=== PATIENT | female | born 1985 | race Caucasian/White ===

== ENCOUNTER → 2020-10-21 | Outpatient (CLI) | payer SELFPAY ==
[~2020-10-21] MED LIST: AMOX1TAB61 PO; METR500T PO
--- NOTE | 2020-10-21 11:01 | RAD ---
XR HAND_RIGHT 3 VIEWS 10/21/2020 10:49 AM INDICATION: Dogbite, pain and swelling COMPARISON: None available. TECHNIQUE: 3 views the right hand are provided. FINDINGS/ IMPRESSION: There is no acute fracture or dislocation. Joint spaces are maintained. Bone mineralization is within normal limits. Soft tissue defect identified along the dorsum of the hand. There is no soft tissue g as or osseous erosion. No radiopaque foreign body. Electronically signed by: Jessica Daniels MD (10/21/2020 10:58 AM) [id number]
== END ==
LOC: DXRAD 10:39
PROVIDERS: ATTEND Nurse Practitioner Family
DX: S61.451A Open bite of right hand, initial encounter (principal); W54.0XXA Bitten by dog, initial encounter; Y93.89 Activity, other specified; Y92.89 Other specified places as the place of occurrence of the external cause; Y99.8 Other external cause status
CPT/HCPCS: 73130

== ENCOUNTER 2020-10-23 20:33 | Emergency (ER) | payer SELFPAY ==
[~2020-10-23] VITALS: Ht 167.6 cm; Wt 131.0 kg
[2020-10-23 20:45] VITALS: BP 148/101
--- NOTE | 2020-10-23 20:48 | PHYS DOC ---
General Adult EDM: Chief Complaint: ANIMAL BITE HPI: HPI: ".. 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 on Friday.. I went to Urgent care.. the started me on Augment 875 twice a day... I came back here on Sat. .. and they did an x-ray.. but it is still swollen today... and red..." Patient is a 35 year old female who presents with above hx and complaints of dog bite to Rt. hand on Friday.. Reportly Police report made. Pt. right hand has findings of puncture wounds and swelling to the level of the wrist. Patient has been taking her Augmentin 875 twice a day. Been soaking and an herbal cleanse twice a day. Patient denies any history immunosuppression. States tetanus is up-to-date. No recent travel. The dog impressions well has vaccinations up-to-date and on her be back tomorrow. Pt. is right hand dominate. Does have edema. Distal neurovascular intact. Capillary refill is equal to Lt. hand. No recent travel. No sick ill contacts. The dog is not ill. Review of Systems: Review of Systems: Constitutional: Denies fever or chills Eyes: Denies change in visual acuity HENT: Denies nasal congestion or sore throat Respiratory: Denies cough or shortness of breath Cardiovascular: Denies chest pain or edema GI: Denies abdominal pain, nausea, vomiting, bloody stools or diarrhea : Denies dysuria Musculoskeletal: Complains of swelling and right hand from dog bite Integument: Denies rash Neurologic: Denies headache, focal weakness or sensory changes Endocrine: Denies polyuria or polydipsia Lymphatic: Denies swollen glands Psychiatric: Denies depression or anxiety Family History: Family History: Noncontributory Current Medications: Current Meds: See nursing for home meds Allergies: Allergies: Allergies Coded Allergies Type Severity Reaction Last Updated Verified No Known Drug Allergies 10/23/20 No Physical Exam: PE: Constitutional: Moderate acute distress, non-toxic appearance. [] HENT: Normocephalic, atraumatic, bilateral external ears normal, oropharynx moist, no oral exudates, nose normal. [] Eyes: PERRLA, EOMI, conjunctiva normal, no discharge. [] Neck: Normal range of motion, no tenderness, supple, no stridor. [] Cardiovascular:Heart rate regular rhythm, no murmur [] Lungs & Thorax: Bilateral breath sounds clear to auscultation [] Abdomen: Bowel sounds normal, soft, no tenderness, no masses, no pulsatile masses. Obese Skin: Warm, dry, no erythema, no rash. [] Dog bite right hand which appears to be infected and surround erythema Back: No tenderness, no CVA tenderness. [] Extremities: No tenderness, no cyanosis, no clubbing, ROM intact, no edema. [] Set findings in right hand as per HPI Neurologic: Alert and oriented X 3, normal motor function, normal sensory function, no focal deficits noted. [] Psychologic: Affect anxious, judgement normal, mood normal. [] EKG: EKG: [] Radiology/Procedures: Radiology/Procedures: Reviewed hand xray 10/21/20[] Heart Score: C/O Chest Pain: N/A Risk Factors: Risk Factors: DM, Current or recent (<one month) smoker, HTN, HLP, family history of CAD, obesity. Risk Scores: Score 0 - 3: 2.5% MACE over next 6 weeks - Discharge Home Score 4 - 6: 20.3% MACE over next 6 weeks - Admit for Clinical Observation Score 7 - 10: 72.7% MACE over next 6 weeks - Early Invasive Strategies Course & Med Decision Making: Course & Med Decision Making Pertinent Labs and Imaging studies reviewed. (See chart for details) Soak hand in very warm salt water or episome salt water 4 x day, the massage area with poloysporin. Continue the Augmentin 875 twice a day. Add Flagyl 500 three times a day. If no improvement in 3 days may need Admit for IV antibiotics and or pic line placement for daily IV antibiotics. Dog must be confine x 2 weeks for observation. . Impression: 1. Dog bite Rt hand 2. Cellulitis [] Dragon Disclaimer: Aly Disclaimer: This electronic medical record was generated, in whole or in part, using a voice recognition dictation system. Departure Departure: Referrals: BARB LAMAS (PCP) Scripts Metronidazole (FLAGYL) 500 Mg Tablet 500 MG PO TID for dog, #30 TAB Prov: ROGELIO NIEVES MD 10/23/20 Amoxicillin/Potassium Clav (AUGMENTIN 875-125 TABLET) 1 Each Tablet 1 TAB PO BID for dog bite for 10 Days, #20 TAB 0 Refills Prov: ROGELIO NIEVES MD 10/23/20 Aly Disclaimer This chart was dictated in whole or in part using Voice Recognition software in a busy, high-work load, and often noisy Emergency Department environment. It may contain unintended and wholly unrecognized errors or omissions. Dragon Disclaimer This chart was dictated in whole or in part using Voice Recognition software in a busy, high-work load, and often noisy Emergency Department environment. It may contain unintended and wholly unrecognized errors or omissions. ROGELIO NIEVES MD Oct 23, 2020 20:48
[2020-10-23] MEDS ORDERED: cefTRIAXone IM 1 GM VIAL IM ONE (21:00)
[2020-10-23] MEDS ORDERED: metroNIDAZOLE 500 MG TABLET PO ONE (21:00)
[2020-10-23] MEDS ORDERED: AMOX1TAB61 PO (21:06)
[2020-10-23] MEDS ORDERED: METR500T PO (21:06)
== END 2020-10-23 21:31 | disposition home or self-care (01) ==
LOC: ER 20:33
DX: S61.431A Puncture wound without foreign body of right hand, initial encounter (principal); R60.0 Localized edema; L03.113 Cellulitis of right upper limb; W54.0XXA Bitten by dog, initial encounter; Y93.89 Activity, other specified; Y92.89 Other specified places as the place of occurrence of the external cause; Y99.8 Other external cause status
CPT/HCPCS: 96372; 99283; J0696

== ENCOUNTER 2021-04-03 13:26 | Emergency (ER) | payer SELFPAY ==
[~2021-04-03] VITALS: Ht 167.6 cm; Wt 136.8 kg
[2021-04-03 14:07] VITALS: BP 146/93
[2021-04-03] MEDS ORDERED: ONDANSETRON PF 4 MG/2 ML VIAL. IVP ONE (14:30)
[2021-04-03] MEDS ORDERED: IV NORMAL SALINE 1,000ML 1,000 ML IV ONE (14:30)
--- NOTE | 2021-04-03 14:40 | PHYS DOC ---
Past History Past Medical History: No Pertinent History (MJ WOLFF APRN) Past Surgical History: Hysterectomy, Tonsillectomy (MJ WOLFF APRN) Alcohol Use: None (MJ WOLFF APRN) General Adult EDM: Chief Complaint: ABDOMINAL PAIN HPI: HPI: Patient is a 36-year-old female being seen in the ER for left upper quadrant pain with nausea and vomiting that started this morning. Patient reports that she vomited two times today. Patient denies any radiation of pain. No treatment prior to arrival. She says that her pain level is very low because she just vomited and her pain improved after vomiting. Patient denies diarrhea, fevers, dysuria, hematuria, blood in vomit, alcohol use. (MJ WOLFF APRN) Review of Systems: Review of Systems: 14 body systems of the review of systems have been reviewed. See HPI for pertinent positive and negative responses, otherwise all other systems are n egative, nonpertinent or noncontributory (MJ WOLFF APRN) Allergies: Allergies: Allergies Coded Allergies Type Severity Reaction Last Updated Verified No Known Drug Allergies 10/23/20 No (MJ WOLFF APRN) Physical Exam: PE: Constitutional: Well developed, well nourished, no acute distress, non-toxic appearance. [] HENT: Normocephalic, atraumatic, bilateral external ears normal, oropharynx moist, no oral exudates, nose normal. [] Eyes: PERRL, EOMI, conjunctiva normal, no discharge. [] Neck: Normal range of motion, no stridor Cardiovascular:Heart rate regular rhythm, no murmur [] Lungs & Thorax: Bilateral breath sounds clear to auscultation [] Abdomen: Bowel sounds normal, soft, , no masses, no pulsatile masses, pain with palpation to left upper quadrant. [] Skin: Warm, dry, no erythema, no rash. [] Back: No tenderness, normal range of motion Extremities: No tenderness, no cyanosis, no clubbing, ROM intact, no edema. [] Neurologic: Alert and oriented X 3, normal motor function, normal sensory function, no focal deficits noted. [] Psychologic: Affect normal, judgement normal, mood normal. [] (MJ WOLFF APRN) Current Patient Data: Labs: Laboratory Tests Test 04/03/21 14:46 8/17/21 14:47 Urine Collection Type Void Urine Color Yellow Urine Clarity Clear Urine pH 7.0 Urine Specific [place] 1.025 Urine Protein Neg Urine Glucose (UA) Neg mg/dL Urine Ketones (Stick) Trace mg/dL Urine Blood Trace Urine Nitrite Neg Urine Bilirubin Neg Urine Urobilinogen Dipstick 0.2 mg/dL Urine Leukocyte Esterase Neg Urine RBC 1-2 /HPF Urine WBC 0 /HPF Urine Squamous Epithelial Cells Few /LPF Urine Bacteria 0 /HPF Urine Mucus Slight /LPF White Blood Count 11.0 x10^3/uL Red Blood Count 4.50 x10^6/uL Hemoglobin 13.2 g/dL Hematocrit 39.3 % Mean Corpuscular Volume 87 fL Mean Corpuscular Hemoglobin 29 pg Mean Corpuscular Hemoglobin Concent 34 g/dL Red Cell Distribution Width 12.7 % Platelet Count 215 x10^3/uL Neutrophils (%) (Auto) 78 % Lymphocytes (%) (Auto) 15 % Monocytes (%) (Auto) 7 % Eosinophils (%) (Auto) 0 % Basophils (%) (Auto) 0 % Neutrophils # (Auto) 8.6 x10^3uL Lymphocytes # (Auto) 1.6 x10^3/uL Monocytes # (Auto) 0.7 x10^3/uL Eosinophils # (Auto) 0.0 x10^3/uL Basophils # (Auto) 0.0 x10^3/uL Sodium Level 140 mmol/L Potassium Level 3.8 mmol/L Chloride Level 105 mmol/L Carbon Dioxide Level 28 mmol/L Anion Gap 7 Blood Urea Nitrogen 16 mg/dL Creatinine 0.9 mg/dL Estimated GFR (Cockcroft-Gault) 70.8 BUN/Creatinine Ratio 18 Glucose Level 101 mg/dL Calcium Level 8.5 mg/dL Total Bilirubin 0.7 mg/dL Aspartate Amino Transf (AST/SGOT) 17 U/L Alanine Aminotransferase (ALT/SGPT) 27 U/L Alkaline Phosphatase 85 U/L Total Protein 7.0 g/dL Albumin 3.8 g/dL Albumin/Globulin Ratio 1.2 Lipase 103 U/L Current Medications Medications (Trade) Dose Ordered Sig/Xavier Route PRN Reason Start Time Stop Time Status Last Admin Dose Admin Sodium Chloride 1,000 ml @ 1,000 mls/hr 1X ONCE IV 04/03/21 14:30 04/03/21 15:29 DC 04/03/21 15:19 Ondansetron HCl (Zofran) 4 mg 1X ONCE IVP 04/03/21 14:30 04/03/21 14:40 DC 04/03/21 15:17 Iohexol (Omnipaque 300 Mg/ml) 75 ml 1X ONCE IV 04/03/21 15:00 04/03/21 15:02 DC 04/03/21 15:07 Fentanyl Citrate (Fentanyl 2ml Vial) 50 mcg 1X ONCE IVP 04/03/21 15:15 04/03/21 15:19 DC 04/03/21 15:21 Vital Signs: Vital Signs Date Time Temp Pulse Resp B/P (MAP) Pulse Ox O2 Delivery O2 Flow Rate FiO2 04/03/21 14:07 98.5 86 16 146/93 97 Room Air (MJ WOLFF APRN) EKG: EKG: [] (MJ WOLFF APRN) Radiology/Procedures: Radiology/Procedures: PROCEDURE: CT ABD PELV W/ IV CONTRST ONLY CT ABDOMEN+PELVIS W History: Left upper quadrant pain. Comparison: None. Technique: CT of the abdomen and pelvis with intravenous contrast. Findings: The left kidney is hypoenhancing, edematous and demonstrates mild hydronephrosis. There is a proximal left ureteropelvic junction stone measuring approximately 6 mm. Multiple additional tiny bilateral nephroliths are present. Bilateral renal hypodensities compatible with cysts. The lung bases are clear. The liver is within normal limits. Status post cholecystectomy. Spleen is mildly enlarged, 15.3 cm. Unremarkable pancreas and adrenal glands. The stomach, small bowel, appendix and colon are unremarkable. No intraperitoneal free air or free fluid. No abdominopelvic adenopathy. The bladder, uterus and adnexa are within normal limits. Vasculature is unremarkable . Soft tissues and osseous structures are within normal limits for age. Impression: 1. Moderate left hydronephrosis with 6 mm left ureteropelvic junction stone. 2. Punctate bilateral nephrolithiasis. ------ Exposure: One or more of the following individualized dose reduction techniques were utilized for this examination: 1. Automated exposure control 2. Adjustment of the mA and/or kV according to patient size 3. Use of iterative reconstruction technique. Electronically signed by: Jogre Bro MD (04/03/2021 3:28 PM) [id number] DICTATED AND SIGNED BY: JORGE BRO MD DATE: 04/03/21 1524 CC: MJ WOLFF APRN; BARB LAMAS ~MTH0 0 [] (MJ WOLFF APRN) Heart Score: C/O Chest Pain: No Risk Factors: Risk Factors: DM, Current or recent (<one month) smoker, HTN, HLP, family history of CAD, obesity. Risk Scores: Score 0 - 3: 2.5% MACE over next 6 weeks - Discharge Home Score 4 - 6: 20.3% MACE over next 6 weeks - Admit for Clinical Observation Score 7 - 10: 72.7% MACE over next 6 weeks - Early Invasive Strategies (MJ WOLFF APRN) Course & Med Decision Making: Course & Med Decision Making Pertinent Labs and Imaging studies reviewed. (See chart for details) [] Patient is a 36-year-old female being seen in the ER for left upper quadrant pain and nausea/vomiting. Work-up in the ER consisted of blood work, UA, CT scan of abdomen. Patient was treated with fluids and nausea medication. Patient tolerated p.o. in the emergency department and was able to ambulate without assistance. No evidence suggesting pyelonephritis or urinary tract infection, no acute kidney injury present with significant hydronephrosis. Pain is controlled at this time. Stone is 6 mm and should pass spontaneously, this was discussed with patient and there agreeable to trial of stone passage at home. Will give pain control and tamsulosin prescriptions. Patient is hemodynamically stable and afebrile currently. Plan to discharge from the emergency department. Advised to take medications as instructed and drink plenty of fluids. Return precautions discussed with the patient who understands all instructions and is comfortable with the plan of care. (MJ WOLFF APRN) Course & Med Decision Making I oversaw on the above date of service of this patient. This patient was evaluated, examined, treated, and dispositioned from the emergency department by the mid-level practitioner. Although I was working at the time , no assistance was requested. Electronically signed, Asya Mcgee DO (ASYA MCGEE DO) Aly Disclaimer: Aly Disclaimer: This electronic medical record was generated, in whole or in part, using a voice recognition dictation system. (MJ WOLFF APRN) Departure Departure: Impression: Primary Impression: Kidney stone Disposition: HOME / SELF CARE / HOMELESS Condition: GOOD Referrals: BARB LAMAS (PCP) Patient Instructions: Diet for Kidney Stones, Kidney Stones Additional Instructions: You were seen in the ER today for left upper abdominal pain and left flank pain. You have a kidney stone that will hopefully pass. We are writing a prescription for pain medication and a medication to help dilate the ureter so that you can pass the stone more easily. You should strain your urine and look for the stone. You are also being discharged home with nausea medication and pain medication. For mild pain you can take ibuprofen but for severe pain you can take [place] that is prescribed. This medication is a combination tablet of hydrocodone and Tylenol. Not take any additional Tylenol with this. This medication can cause sedation to so do not take any need to be alert and do not take with alcohol. You will need to follow-up with urologist as soon as possible. You should return to the ER if you have worsening pain, fever, continued bloody urine, lightheadedness, shortness of breath, chest pain or any new or concerning symptoms. EMERGENCY DEPARTMENT GENERAL DISCHARGE INSTRUCTIONS Thank you for coming to [facility] (ED) today and trusting us with you care. We trust that you had a positivie experience in our Emergency Department. If you wish to speak to the department management, you may call the director at [phone]. YOUR FOLLOW UP INSTRUCTIONS ARE FOLLOWS: 1. Do you have a private Doctor? If you do not have a private doctor, please ask for a resource list of physicians or clinics that may be able to assist you with follow up care. 2. The Emergency Physician has interpreted your x-rays. The X-Ray specialist will also review them. If there is a change in the findings, you will be notified in 48 hours when at all possible. 3. A lab test or culture has been done, your results will be reviewed and you will be notified if you need a change in treatment. ADDITIONAL INSTRUCTIONS AND INFORMATION: 1. Your care today has been supervised by a physician who is specially trained in emergency care. Many problems require more than one evaluation for a complete diagnosis and treatment. We recommend that you schedule your follow up appointment as recommended to ensure complete treatment of you illness or injury. If you are unable to obtain follow up care and continue to have a problem, or if your condition worsens, we recommend that you return to the ED. 2. We are not able to safely determine your condition over the phone nor are we able to give sound medical advice over the phone. For these safety reasons, if you call for medical advice we will ask you to come to the ED for further evaluation. 3. If you have any questions regarding these discharge instructions please call the ED at [phone]. SAFETY INFORMATION: In the interest of safety, wellness, and injury prevention; we encourage you to wear your sealbelt, if you smoke; quite smoking, and we encourage family to use a protective helmet for bicycling and other sporting events that present an increased risk for head injury. IF YOUR SYMPTOMS WORSEN OR NEW SYMPTOMS DEVELOP, OR YOU HAVE CONCERNS ABOUT YOUR CONDITION; OR IF YOUR CONDITION WORSENS WHILE YOU ARE WAITING FOR YOUR FOLLOW UP APPOINTMENT; EITHER CONTACT YOUR PRIMARY CARE DOCTOR, THE PHYSICIAN WHOSE NAME AND NUMBER YOU WERE GIVEN, OR RETURN TO THE ED IMMEDIATELY. Scripts Hydrocodone/Acetaminophen (Hydrocodone-Acetamin 5-325 mg) 1 Each Tablet 1 EACH PO Q6HRS PRN for PAIN for 2 Days, #8 TAB 0 Refills Prov: MJ WOLFF APRN 04/03/21 Tamsulosin Hcl (FLOMAX) 0.4 Mg Cap.er.24h 1 CAP PO QHS for kidney stone for 14 Days, #14 CAP 0 Refills Prov: MJ WOLFF APRN 04/03/21 Ondansetron Hcl (ZOFRAN) 4 Mg Tablet 4 MG PO TID PRN PRN for NAUSEA for 3 Days, #9 TAB 0 Refills Prov: MJ WOLFF APRN 04/03/21 MJ WOLFF APRN Apr 03, 2021 14:40 ASYA MCGEE DO Apr 08, 2021 06:09
[2021-04-03] MEDS ORDERED: IOHEXOL 300 MG/ML 75 ML VIAL. IV ONE (15:00)
[2021-04-03 15:11] LABS: BASO % 0 % (0-3); EOS % 0 % (0-3); HEMATOCRIT 39.3 % (36.0-47.0); HEMOGLOBIN 13.2 g/dL (12.0-15.5); LYMPH # 1.6 x10^3/uL (1.0-4.8); LYMPH % 15 % (24-48); MEAN CORPUSCULAR HEMOGLOBIN 29 pg (25-35); MEAN CORPUSCULAR HGB CONC 34 g/dL (31-37); MEAN CORPUSCULAR VOLUME 87 fL (79-100); MONO # 0.7 x10^3/uL (0.0-1.1); MONO % 7 % (0-9); NEUT # 8.6 x10^3uL (1.8-7.7); NEUT % 78 % (31-73); PLATELET COUNT 215 x10^3/uL (140-400); RED CELL DISTRIBUTION WIDTH 12.7 % (11.5-14.5)
[2021-04-03 15:21] LABS: CALCIUM 8.5 mg/dL (8.5-10.1); CREATININE 0.9 mg/dL (0.6-1.0); GFR 70.8; POTASSIUM 3.8 mmol/L (3.5-5.1)
[2021-04-03 15:26] LABS: ALBUMIN 3.8 g/dL (3.4-5.0); ALBUMIN/GLOBULIN RATIO 1.2 (1.0-1.7); TOTAL BILIRUBIN 0.7 mg/dL (0.2-1.0)
--- NOTE | 2021-04-03 15:30 | RAD ---
CT ABDOMEN+PELVIS W History: Left upper quadrant pain. Comparison: None. Technique: CT of the abdomen and pelvis with intravenous contrast. Findings: The left kidney is hypoenhancing, edematous and demonstrates mild hydronephrosis. There is a proximal left ureteropelvic junction stone measuring approximately 6 mm. Multiple additional tiny bilateral n ephroliths are present. Bilateral renal hypodensities compatible with cysts. The lung bases are clear. The liver is within normal limits. Status post cholecystectomy. Spleen is m ildly enlarged, 15.3 cm. Unremarkable pancreas and adrenal glands. The stomach, small bowel, appendix and colon are unremarkable. No intraperitoneal free air or free fluid. No abdominopelvic adenopathy. The bladder, uterus and adnexa are within normal limits. Vasculature is unremarkable. Soft tissues a nd osseous structures are within normal limits for age. Impression: 1. Moderate left hydronephrosis with 6 mm left ureteropelvic junction stone. 2. Punctate bilateral nephrolithiasis. ------ Exposure: One or more of the following individualized dose reduction techniques were utilized for thi s examination: 1. Automated exposure control 2. Adjustment of the mA and/or kV according to patient size 3. Use of iterative reconstruction technique. Electronically signed by: Jorge Botello MD (04/03/2021 3:28 PM) [id number]
[2021-04-03 15:31] LABS: BACTERIA,URINE 0 /HPF (0-FEW); BILIRUBIN,URINE NEG (NEG); CLARITY,URINE CLEAR; COLOR,URINE YELLOW; GLUCOSE,URINE NEG (NEG); NITRITE,URINE NEG (NEG); SQUAMOUS EPITHELIAL CELL,UR FEW /LPF; UROBILINOGEN,URINE 0.2 mg/dL (0.2 mg/dL); WBC,URINE 0 /HPF (0-4)
[2021-04-03] MEDS ORDERED: TAMSULOSIN 0.4 MG CAP.ER.24H. PO ONE (15:45)
[2021-04-03] MEDS ORDERED: KETOROLAC 15 MG/ML VIAL. IVP ONE (15:45)
[2021-04-03] MEDS ORDERED: ONDA4TAB7 PO (15:54)
[2021-04-03] MEDS ORDERED: TAMS0.4C97 PO (15:54)
[2021-04-03] MEDS ORDERED: HYDR-2759 PO (15:54)
== END 2021-04-03 16:19 | disposition home or self-care (01) ==
LOC: ER 13:26
DX: N13.2 Hydronephrosis with renal and ureteral calculous obstruction (principal); Z90.710 Acquired absence of both cervix and uterus
CPT/HCPCS: 36415; 74177; 80053; 81001; 83690; 85025; 96361; 96374; 96375; 99285; J1885; J2405; J3010; J7030; Q9967